=== PATIENT | female | born 1975 | race Asian ===

== ENCOUNTER 2016-09-08 14:18 | Emergency (ER) | payer OTHER ==
[2016-09-08 14:34] VITALS: RESP 16
[2016-09-08] MEDS ORDERED: IBUPROFEN 200 MG TAB PO ONE (14:37)
[2016-09-08] MEDS ORDERED: ACETAMINOPHEN 325 MG TAB PO ONE (15:13)
--- NOTE | 2016-09-08 15:19 | EDPHY ---
H & P Time Seen by Provider: 09/08/16 15:04 HPI/ROS: This patient had a fall last night while wearing high heels after 2 beers and a glass of wine. She explains that she stepped out side and slipped on the wet patio following with injury to her right ankle and right elbow. She reports 9/ 10 pain at the ankle and elbow pain that is mild to moderate baseline becomes more severe with movement of the elbow. She has difficulty extending the elbow due to the pain. She also reports bruises to both kneecaps but she states that the pain is minimal. ROS: She denies any head injury from the incident. Musculoskeletal: No neck or back pain. Neuro: No numbness tingling or focal weakness Pulmonary: No chest pain or shortness of breath. 5 point ROS is otherwise negative Social History: She is accompanied by a female [place] work colleague Social drinker. She did have 2 beers 1 glass 1 prior to follow-up tonight She is visiting from [place] will fly back to [place] tomorrow Smoking Status: Heavy smoker Physical Exam: Physical Exam Vital signs are normal. General: No acute distress HEENT: Atraumatic. Eyes: Pupils equal and react to light. Extraocular motions are intact. Lungs: No respiratory distress. Cardiac: Brisk capillary refill is intact throughout. Pulses are 2+ and symmetric in the affected extremity. Abdomen: Soft, nontender Skin: No rash or pallor. Neuro: GCS 15 with no sensorimotor deficits infected extremities Extremities: Atraumatic normal except for right elbow-held in partial flexion with some distal humeral tenderness and tenderness extends in the proximal forearm that seems more on the volar aspect of the. No obvious ecchymosis or swelling. Right knee: Prepatellar contusion with mild tenderness in superficial abrasion. Range of motion intact. No laxity left knee: Prepatellar contusion with associated superficial abrasion. Full range of motion intact with no laxity. No joint effusion. Right ankle: Patient has medial tenderness to deltoid ligament region no associated foot tenderness or swelling. No ecchymosis is noted. Initial differential diagnosis: Right elbow sprain versus fracture, right ankle sprain versus fracture, abrasions, contusions Constitutional: Initial Vital Signs Temperature (C) 37.2 C 09/08/16 14:30 Heart Rate 90 09/08/16 14:30 Respiratory Rate 16 09/08/16 14:30 Blood Pressure 131/85 H 09/08/16 14:30 O2 Sat (%) 95 09/08/16 14:30 O2 Delivery Mode Room Air Allergies/Adverse Reactions: erythromycin base Allergy (Verified 09/08/16 14:29) Home Medications: Medication Instructions Recorded traMADol [Ultram 50 mg (*)] 50 - 100 mg PO Q4 #12 tab 09/08/16 MDM/Departure - MDM Diagnostics: Oren Warren-radiologist called me prior to my looking at the films. I also reviewed the x-rays. Elbow x-ray: Evidence of subtle radial head fracture with abnormal angle between metaphysis in the shaft with an anterior elbow effusion associated. Ankle x-ray: Appears normal Imaging: Discussed imaging studies w/ respite care provider Radiologist Medications Given: Discontinued Medications Ibuprofen (Motrin) 600 mg PO EDNOW ONE Stop: 09/08/16 14:38 Last Admin: 09/08/16 14:45 Dose: 600 mg ED Course/Re-evaluation: Ibuprofen Tylenol p.o. Patient's abrasions were clean. Bacitracin bandages applied Stirrup splint applied to the right ankle Sling to the right arm. Counseled the patient regarding her radial head fracture, ankle sprain the deltoid ligament and plan. The patient flies suture pain tomorrow. Provided a disc copy of her x-ray for her - Depart Disposition: Home, Routine, Self-Care Clinical Impression: Abrasions of multiple sites Radial head fracture, closed Qualifiers: Encounter type: initial encounter Fracture alignment: nondisplaced Laterality: right Qualified Code(s): S52.124A - Nondisplaced fracture of head of right radius, initial encounter for closed fracture Ankle sprain Qualifiers: Encounter type: initial encounter Involved ligament of ankle: deltoid ligament Laterality: right Qualified Code(s): S93.421A - Sprain of deltoid ligament of right ankle, initial encounter Condition: Good Instructions: Ankle Sprain (ED), Elbow Fracture (ED) Additional Instructions: Diagnoses: 1. Ankle sprain 2. Radial head fracture of elbow Plan: Ice 20 minutes at a time to 3 times a day for the next few days Ibuprofen-600 mg per 6 hours Tylenol 650-1000 mg per 6 hours as needed for pain Finally, tramadol in addition if needed. No driving, alcohol work on tramadol. Wear the ankle sprain splint until your symptoms improve-likely over the next 7- 10 days He will need to wear the sling for 3-4 weeks. However, be sure to gently work [id number] of your elbow extending it and flexing it each day to prevent "locking" of the elbow Follow up with orthopedic physician in [place] when you return home. Stand Alone Forms: Airline Excuse Referrals: NONE *PRIMARY CARE P,. [Primary Care Provider] - As per Instructions
[2016-09-08 16:35] VITALS: BP 127/81; PULSE 85; TEMP 98.6; O2SAT 96
== END 2016-09-08 16:30 | disposition home or self-care (01) ==
LOC: CED 14:18
DX: S52.124A Nondisplaced fracture of head of right radius, initial encounter for closed fracture (principal); S93.421A Sprain of deltoid ligament of right ankle, initial encounter; S80.211A Abrasion, right knee, initial encounter; S80.212A Abrasion, left knee, initial encounter; F17.200 Nicotine dependence, unspecified, uncomplicated; W01.0XXA Fall on same level from slipping, tripping and stumbling without subsequent striking against object, initial encounter
CPT/HCPCS: 73080-PO; 73610-PO; A4565; L4350